=== PATIENT | female | born 1950 | race Two or more races ===

== ENCOUNTER 2022-05-02 21:07 | Emergency (ER) | payer OTHER ==
[~2022-05-02] VITALS: Ht 175.3 cm; Wt 50.9 kg
[2022-05-02 22:11] LABS: Hematocrit 36.9 % (36.0-46.0); Hemoglobin 12.2 g/dL (12.2-16.2); Mean Corpuscular Hemoglobin 29.5 pg (28.0-32.0); Mean Corpuscular Hgb Conc. 33.2 g/dL (32.0-36.0); Mean Corpuscular Volume 88.8 fL (80.0-100.0); Red Blood Cells 4.15 10^6/uL (4.0-5.20); Red Cell Distribution Width 15.4 % (11.8-14.3); White Blood Cell 12.9 10^3/uL (4.4-10.8)
[2022-05-02 22:14] LABS: Basophils % (manual) 0 (0.0-2.0); Blast Cells 0; Metamyelocytes % 0; Myelocytes % 0; Promyelocytes % 0; Reactive Lymphocytes 0
[2022-05-02 22:55] LABS: Albumin 2.7 g/dL (3.4-5.0); BUN/Creatinine Ratio 11.1; Bilirubin, Total 0.4 mg/dL (0.2-1.0); Calcium 9.4 mg/dL (8.5-10.1); Total Protein 6.5 g/dL (6.4-8.2)
[2022-05-02 23:05] LABS: Potassium 2.7 mmol/L (3.5-5.1)
[2022-05-02] MEDS ORDERED: POTASSIUM CHL 20 Meq TABLET PO ONE (23:15)
[2022-05-02 23:17] LABS: Band Neutrophils % (manual) 2; Eosinophils % (manual) 14 (0-7); Lymphocytes % (manual) 24 (10.0-50.0); Monocytes % (manual) 7 (0-12)
[2022-05-02 23:24] VITALS: BP 117/71
== END 2022-05-03 02:41 | disposition left against medical advice (07) ==
LOC: EDBD 21:07 → ER 21:07 → EDUNIT# 21:07 → ER 05-03 02:41
DX: R10.9 Unspecified abdominal pain (principal); Z90.49 Acquired absence of other specified parts of digestive tract; Z90.710 Acquired absence of both cervix and uterus; Z88.1 Allergy status to other antibiotic agents
CPT/HCPCS: 36415; 71045; 74176; 80053; 83690; 84484; 85007; 85027